=== PATIENT | male | born 2000 | race Caucasian/White ===

== ENCOUNTER 2019-12-24 13:15 | Outpatient (RCR) | payer BC, MEDICAID ==
[~2019-12-24 13:15] MED LIST: PREVACID 15MG15 M1 PO; PROVENTIL0.09 MG/A1 IH; SINGULAIR 5M5 MG/TAB PO
== END 2020-02-28 | disposition home or self-care (01) ==
LOC: MKS.ESL.PT
DX: M54.5 Low back pain (principal)